=== PATIENT | female | born 1990 | race Caucasian/White ===

== ENCOUNTER 2016-12-07 17:10 | Emergency (ER) | payer SELFPAY ==
[2016-12-07 17:22] VITALS: BP 132/86
--- NOTE | 2016-12-07 17:28 | EDM.PDOC ---
ED HPI GENERAL MEDICAL PROBLEM - General Chief Complaint: [employer] Problem Stated Complaint: NO MENSTRUAL CYCLE Time Seen by Provider: 12/07/16 17:14 Source of Information: Reports: Patient History Limitations: Reports: No Limitations - History of Present Illness INITIAL COMMENTS - FREE TEXT/NARRATIVE: Presents to the ER because she has not had a period in about 6 weeks. She took 2 tests at home and they were both negative. She states that she doesn 't have insurance so she wanted to come here and get it checked out to see if she has PCOS or something. She denies dysuria, abdominal pain or cramping, fever or any other symptoms. She is sexually active, not on control and desires . - Related Data Allergies Allergy/AdvReac Type Severity Reaction Status Date / Time Penicillins Allergy Cannot Verified 12/07/16 17:22 Remember Home Meds: Home Meds . [No Known Home Meds] 12/07/16 [History] ED ROS GENERAL - Review of Systems Review Of Systems: ROS reveals no pertinent complaints other than HPI. ED EXAM - Physical Exam Exam: See Below Exam Limited By: No Limitations General Appearance: Alert, No Apparent Distress Ears: Normal External Exam Nose: Normal Inspection Throat/Mouth: Normal Inspection Head: Atraumatic, Normocephalic Neck: Normal Inspection Respiratory/Chest: No Respiratory Distress, Lungs Clear, Normal Breath Sounds Cardiovascular: Normal Peripheral Pulses, Regular Rate, Rhythm, No Murmur GI/Abdominal: Normal Bowel Sounds, Soft, Non-Tender, No Distention Back Exam: Normal Inspection Extremities: Normal Inspection Neurological: Alert, Oriented Psychiatric: Normal Affect, Normal Mood Skin Exam: Warm, Dry, Intact, Normal Color, No Rash Lymphatic: No Adenopathy Course - Vital Signs Last Recorded V/S: Last Vital Signs Temp 36.7 C 12/07/16 17:19 Pulse 107 H 12/07/16 17:19 Resp 16 12/07/16 17:19 BP 132/86 12/07/16 17:19 Pulse Ox 96 12/07/16 17:19 Departure - Departure Time of Disposition: 17:26 Disposition: Home, Self-Care 01 Condition: good Clinical Impression: Amenorrhea - Discharge Information Referrals: PCP,None [Primary Care Provider] - [facility] [Outside] Bridger Martinez MD [Physician] - Forms: ED Department Discharge Additional Instructions: 1. please make an appointment in [employer] to fully evaluate why you are not having periods.
== END 2016-12-07 18:01 | disposition home or self-care (01) ==
LOC: MW.ED 17:10
DX: N91.2 Amenorrhea, unspecified (principal); Z88.0 Allergy status to penicillin
CPT/HCPCS: 99282; 99283